=== PATIENT | male | born 1945 | race Caucasian/White ===

== ENCOUNTER 2018-03-23 11:18 | Inpatient (IN) | payer OTHER ==
[~2018-03-23] VITALS: Ht 160 cm; Wt 64.4 kg
[~2018-03-23 11:18] MED LIST: AVALIDE 150/12.1 TAB PO; GLUCOTROL5 MG/BOTTL PO; METFORMIN HCL500 M1 PO; NORVASC5 MG PO
== END 2018-03-26 10:54 | disposition home or self-care (01) | DRG 694 ==
LOC: ER 11:18 → SURH 17:07
PROVIDERS: Urology
PROC: BW21ZZZ Computerized Tomography (CT Scan) of Abdomen and Pelvis (ICD-10-PCS; 2018-03-23)
PROC: 0T778DZ Dilation of Left Ureter with Intraluminal Device, Via Natural or Artificial Opening Endoscopic (ICD-10-PCS; 2018-03-25)
PROC: 0TF48ZZ Fragmentation in Left Kidney Pelvis, Via Natural or Artificial Opening Endoscopic (ICD-10-PCS; principal; 2018-03-25 13:45)
DX: N13.2 Hydronephrosis with renal and ureteral calculous obstruction (principal)

== ENCOUNTER 2018-07-30 09:59 | Day surgery (SDC) | payer OTHER ==
[~2018-07-30] VITALS: Ht 152.4 cm; Wt 63.5 kg
--- NOTE | 2018-07-30 10:06 | NUR ---
PACIENTE ALERTA,ACTIVO Y ORIENTADO,REFIERE DOLOR EN COSTADO IZQ Y ESPALDA BAJA LADO IZQ DESDE ELO EN LA TARDE.
[2018-07-30] MEDS ORDERED: CARDURA XL4 MG (10:08)
[2018-07-30] MEDS ORDERED: CARDURA1 MG (10:08)
== END 2018-07-31 09:00 | disposition home or self-care (01) ==
LOC: ER 09:59 → CIR.AMB 12:00 → SURH 16:35 → ER 16:35 → EDSTATUS 07-31 07:00 → CIR.AMB 07-31 09:00 → SURH 07-31 12:00
DX: N20.1 Calculus of ureter (principal); N20.0 Calculus of kidney; E86.0 Dehydration

== ENCOUNTER → 2019-05-02 | Outpatient (CLI) | payer OTHER ==
[~2019-05-02] MED LIST changes: +CARDURA XL4 MG; +CARDURA1 MG
== END | disposition home or self-care (01) ==
LOC: TOM 09:19
DX: R10.9 Unspecified abdominal pain (principal)
CPT/HCPCS: 74177; Q9965

== ENCOUNTER 2021-05-25 13:45 | Outpatient (CLI) | payer OTHER ==
[2021-05-26] MEDS ORDERED: [UNRECOGNIZED DRUG - OTHER] PO (11:20)
== END 2021-05-25 14:04 | disposition home or self-care (01) ==
LOC: MRI 13:45
PROVIDERS: ATTEND Psychiatry & Neurology Clinical Neurophysiology
DX: M48.02 Spinal stenosis, cervical region (principal); M54.12 Radiculopathy, cervical region
CPT/HCPCS: 72141

== ENCOUNTER 2021-05-26 10:56 | Inpatient (IN) | payer OTHER ==
[~2021-05-26] VITALS: Ht 160 cm; Wt 56.2 kg
[2021-05-26] MEDS ORDERED: [UNRECOGNIZED DRUG - OTHER] PO (11:20)
--- NOTE | 2021-05-26 11:25 | NUR ---
PACIENTE ALERTA Y ORIENTADO ACOMPANADO DE ESPITIA ESPOSA. VIENE POR REFIERIDO MEDICO A HARTMAN RACHEL. SE MONITOREAN S/V Y SE UBICA EN BETO DE ESPERA.
[2021-05-30] MEDS ORDERED: MEDROLPACK PO (13:01)
[2021-05-30] MEDS ORDERED: PROTONIX20 MG PO (13:01)
== END 2021-05-30 16:02 | disposition home or self-care (01) | DRG 99 ==
LOC: ER 10:56 → MEDI 16:45
PROVIDERS: ADMIT Internal Medicine; ATTEND Internal Medicine
DX: G37.3 Acute transverse myelitis in demyelinating disease of central nervous system (principal); G20 Parkinson's disease; R29.898 Other symptoms and signs involving the musculoskeletal system; I10 Essential (primary) hypertension; Z20.822 Contact with and (suspected) exposure to COVID-19; E11.9 Type 2 diabetes mellitus without complications; Z79.4 Long term (current) use of insulin

== ENCOUNTER 2021-08-02 09:42 | Outpatient (CLI) | payer OTHER ==
[~2021-08-02 09:42] MED LIST changes: +MEDROLPACK PO; +PROTONIX20 MG PO; +[UNRECOGNIZED DRUG - OTHER] PO
== END 2021-08-02 09:56 | disposition home or self-care (01) ==
LOC: MRI 09:42
PROVIDERS: ATTEND Physical Medicine & Rehabilitation
DX: M48.061 Spinal stenosis, lumbar region without neurogenic claudication (principal); M54.59 Other low back pain
CPT/HCPCS: 72158; A9575

== ENCOUNTER 2021-10-12 08:33 | Emergency (ER) | payer OTHER ==
[~2021-10-12] VITALS: Ht 160 cm; Wt 56.7 kg
[2021-10-12] MEDS ORDERED: AVALIDE 300-121 EACH PO (08:43)
[2021-10-12] MEDS ORDERED: SINEMET 25-1001 EACH (08:44)
[2021-10-12] MEDS ORDERED: LYRICA225 MG (08:45)
[2021-10-12] MEDS ORDERED: KETO10TA2 PO (15:56)
[2021-10-12] MEDS ORDERED: TAMS0.4C PO (15:56)
== END 2021-10-12 17:13 | disposition home or self-care (01) ==
LOC: ER 08:33
DX: R10.84 Generalized abdominal pain (principal); I10 Essential (primary) hypertension; E11.9 Type 2 diabetes mellitus without complications

== ENCOUNTER 2021-11-08 09:16 | Outpatient (CLI) | payer OTHER ==
[~2021-11-08 09:16] MED LIST changes: +AVALIDE 300-121 EACH PO; +KETO10TA2 PO; +LYRICA225 MG; +SINEMET 25-1001 EACH; +TAMS0.4C PO
== END 2021-11-08 09:19 | disposition home or self-care (01) ==
LOC: NUCLEAR 09:16
PROVIDERS: ATTEND Physical Medicine & Rehabilitation
DX: I87.2 Venous insufficiency (chronic) (peripheral) (principal)

== ENCOUNTER 2021-11-16 08:53 | Outpatient (CLI) | payer OTHER | END 2021-11-16 08:54 | disposition home or self-care (01) | LOC: NUCLEAR 08:53 | PROVIDERS: ATTEND Physical Medicine & Rehabilitation | DX: I87.2 Venous insufficiency (chronic) (peripheral) (principal) ==

== ENCOUNTER 2022-02-09 15:56 | Emergency (ER) | payer OTHER ==
[~2022-02-09] VITALS: Ht 160 cm; Wt 56.7 kg
== END 2022-02-09 19:38 | disposition home or self-care (01) ==
LOC: ER 15:56
DX: R10.31 Right lower quadrant pain (principal)

== ENCOUNTER 2022-03-30 05:33 | Emergency (ER) | payer OTHER ==
[~2022-03-30] VITALS: Ht 157.5 cm; Wt 55.3 kg
== END 2022-03-30 12:56 | disposition home or self-care (01) ==
LOC: ER 05:33
DX: R30.0 Dysuria (principal); M54.50 Low back pain, unspecified; N20.0 Calculus of kidney; E11.9 Type 2 diabetes mellitus without complications; Z79.84 Long term (current) use of oral hypoglycemic drugs; I10 Essential (primary) hypertension; G20 Parkinson's disease

== ENCOUNTER 2022-04-07 09:13 | Outpatient (CLI) | payer OTHER | END 2022-04-07 09:14 | disposition home or self-care (01) | LOC: TOM 09:13 | PROVIDERS: ATTEND Urology | DX: N20.1 Calculus of ureter (principal) ==

== ENCOUNTER 2022-07-13 10:22 | Day surgery (SDC) | payer OTHER ==
[~2022-07-13 10:22] MED LIST changes: +LYRICA200 MG PO; +SINEMET 25-1001 EACH PO
[2022-07-13] MEDS ORDERED: KETO10TA2 PO (16:49)
[2022-07-13] MEDS ORDERED: MIRALAX17 GM PO (16:49)
[2022-07-13] MEDS ORDERED: ULTRAM50 MG PO (16:49)
[2022-07-13] MEDS ORDERED: TYLENOL ARTHRI650 MG PO (16:49)
== END 2022-07-13 21:25 | disposition home or self-care (01) ==
LOC: CIR.AMB 10:22
PROVIDERS: ATTEND Surgery
DX: K40.90 Unilateral inguinal hernia, without obstruction or gangrene, not specified as recurrent (principal); K42.9 Umbilical hernia without obstruction or gangrene; I10 Essential (primary) hypertension; F17.210 Nicotine dependence, cigarettes, uncomplicated; E11.9 Type 2 diabetes mellitus without complications; Z79.84 Long term (current) use of oral hypoglycemic drugs
CPT/HCPCS: 49650; 49652; C1781

== ENCOUNTER 2023-01-05 14:52 | Emergency (ER) | payer OTHER ==
[~2023-01-05] VITALS: Ht 160 cm; Wt 49.9 kg
[~2023-01-05 14:52] MED LIST changes: +MIRALAX17 GM PO; +TYLENOL ARTHRI650 MG PO; +ULTRAM50 MG PO
== END 2023-01-05 16:57 | disposition home or self-care (01) ==
LOC: ER 14:52
DX: M94.0 Chondrocostal junction syndrome [Tietze] (principal)

== ENCOUNTER 2024-06-01 15:18 | Emergency (ER) | payer OTHER ==
[~2024-06-01] VITALS: Ht 167.6 cm; Wt 52.2 kg
[2024-06-01 17:26] LABS: ABG PH 7.431 (7.35-7.45); ABG PO2 153.9 mmHg (80-100); BASE EXCESS 5.8 mmol/l; BICARBONATE 31.2 mmol/l (23-25); SaO2 99.4 %; Tco2 32.7 mmol/l
[2024-06-01 17:33] LABS: MEAN CELL VOLUME 87.6 fL (80.0-100.00); MEAN CORPUSCULAR HEMOGLOBIN 30.1 pg (27.00-32.0); MEAN CORPUSCULAR HGB CONC 34.3 g/dl (32.0-36.0); PLATELET COUNT 324 K/uL (150-450); RED BLOOD COUNT 4.33 M/uL (4.00-6.00); RED CELL DISTRIBUTION WIDTH 13.9 % (11.5-14.5)
[2024-06-01 17:44] LABS: allen test SATISFACTORY; puncture site RADIAL RIGHT
[2024-06-01 17:45] LABS: o2 28 %
== END 2024-06-01 20:59 | disposition home or self-care (01) ==
LOC: ER 15:18
PROVIDERS: Emergency Medicine
DX: G20.A1 Parkinson's disease without dyskinesia, without mention of fluctuations (principal); E78.00 Pure hypercholesterolemia, unspecified; I10 Essential (primary) hypertension; E11.9 Type 2 diabetes mellitus without complications; Z79.84 Long term (current) use of oral hypoglycemic drugs